=== PATIENT | male | born 1955 | race African-American/Black ===

== ENCOUNTER 2018-09-22 15:01 | Emergency (ER) | payer MEDICARE, SELFPAY ==
[2018-09-22 15:01] VITALS: BP 154/113; PULSE 107; RESP 18; TEMP 36.1; O2SAT 93; BMI 38.2
--- NOTE | 2018-09-22 15:24 | ED.RN ---
PT STATES THAT THESE GUYS ARE LISTENING TO EVERYTHING I AM SAYING RIGHT NOW. PT STATES THAT THEY ARE GOING TO COME GET ME. PT STATES THAT THERE ARE PEOPLE IN THE SMALL AND TV. I DONT WANT ANYONE IN THIS ROOM.
--- NOTE | 2018-09-22 15:33 | ED.RN ---
PT STATES THAT THEY PUT A TRACKER IN ME, I'M NOT SURE WHERE IT IS, I THINK IT IS IN MY NECK. YOU CAN HEAR IT GO 'BEEP BEEP BEEP' WHEN THEY ARE ON THE TV WATCHING ME. 'BEEP BEEP BEEP'.
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
[2018-09-22] MEDS: LORazepam 1 MG Tablet 2 MG PO (15:58)
--- NOTE | 2018-09-22 16:00 | ED.RN ---
PT CONTINUES TO HAVE CONCERNS REGARDING ABOUT PEOPLE COMING TO GET HIM. THIS RN TRYING TO REASSURE PT THAT WE ARE HERE TO HELP HIM.
[2018-09-22 16:01] VITALS: RESP 16
[2018-09-22 16:56] LABS: Amphetamine Urine VISTA POSITIVE (<1000 ng/mL); Barbiturate Urine VISTA NEGATIVE (< 200 ng/mL); Benzodiazepine Urine VISTA NEGATIVE (< 200 ng/mL); Cocaine Urine VISTA POSITIVE (< 300 ng/mL); Ecstacy Urine VISTA POSITIVE (< 500 ng/mL); Methadone Urine VISTA NEGATIVE (< 300 ng/mL); PCP Urine VISTA NEGATIVE (< 25 ng/mL); THC Urine VISTA POSITIVE (< 50 ng/mL); Vista UDS pH Range 6
--- NOTE | 2018-09-22 17:11 | ED.RN ---
CALLED THE [facility]
[2018-09-22 17:18] LABS: Absolute Lymphocyte Count 1.88 X10^3/ul (0.83-4.51); Absolute Neutrophil Count 3.9 X10^3/uL (2.0-7.7); Basophil# 0.01 X10^3/uL; Basophil% 0.2 % (0-1); Eosinophil# 0.06 X10^3/uL; Hematocrit 49.2 % (40-54); Hemoglobin 16.6 g/dl (13.0-16.5); Lymphocyte # 1.88 X10^3/ul (4.0); Lymphocyte % 30.5 % (19-41); Mean Corp Hgb Conc 33.7 g/gl (32-36); Mean Corpuscular Hgb 29.8 pg (27.0-32.0); Mean Corpuscular Volume 88.3 fL (80-94); Mean Platelet Vol. 9.8 fl (6.2-12.0); Monocyte# 0.36 X10^3/uL; Monocyte% 5.8 % (0-10); Neutrophil # 3.85 X10^3/uL (2.7-7.7); Neutrophil % 62.5 % (47-70); Platelet Count 183 K/mm3 (150-450); Red Blood Count 5.57 M/mm3 (4.6-6.2); White Blood Count 6.2 K/mm3 (4.4-11.0)
[2018-09-22 17:19] LABS: POSITIVE COUNT NO; POSITIVE DIFFERENTIAL NO; POSITIVE MORPHOLOGY NO
[2018-09-22 17:35] LABS: Anion Gap 11 (5-15); BUN 15 mg/dL (7-18); BUN/Creat Ratio 9.9 RATIO (10-20); Calcium,Total 8.9 mg/dL (8.5-10.1); Chloride 109 mmol/L (98-107); Creatinine, Serum 1.51 mg/dL (0.70-1.30); EST Glomerular Filtration Rate 50 mL/min (>60); Est Glom Filt Rate - Afr Amer 60 mL/min (>60); Estimated Creatinine Clearance 44.12 ml/min; Glucose 87 mg/dL (74-106); Potassium 3.2 mmol/L (3.5-5.1); Sodium Level 148 mmol/L (136-145)
[2018-09-22 17:52] LABS: Alcohol, Blood (Medical)-Serum < 3.0 mg/dL
[2018-09-22 17:58] VITALS: RESP 18
--- NOTE | 2018-09-22 17:59 | ED.RN ---
ENIO FROM [facility] IS HERE.
--- NOTE | 2018-09-22 18:40 | DCINST.ED_ITS ---
ED Disposition - Plan for ED Patient: Chief Complaint: Mental Health Instructions: ED Personality Disorder, ED Drug Abuse General Referrals: Elaine Smith MD [Primary Care Provider] - Additional Instructions: Please consider going to detox through your doctor's office or the [facility] detox center stop using drugs as it can lead to or complications
[2018-09-22] MEDS: 0.9% Normal Saline 1,000 ML 999 ML IV (18:43)
--- NOTE | 2018-09-22 18:46 | ED.RN ---
SPOKE WITH PT SISTER. THE SISTER STATED THAT HE DOES NOT HAVE BEHAVIORAL HEALTH PROBLEMS, THAT HE HAS DRUG ABUSE ISSUES AND SO DOES HIS GIRLFRIEND. STATED THAT THE PT MAY GO HOME AROUND [facility]. SISTER IS ATTEMPTING TO MAKE ARRANGEMENTS FOR THE PT TO BE PICKED UP.
[2018-09-22 19:27] VITALS: RESP 16
[2018-09-22 20:25] VITALS: RESP 16
[2018-09-22 20:54] VITALS: BP 139/97; PULSE 95; RESP 18; O2SAT 96
== END 2018-09-22 21:03 | disposition home or self-care (01) ==
LOC: ED 15:56
PROVIDERS: Emergency Provider Emergency Medicine; Family Provider Internal Medicine; PCP Internal Medicine
DX: R44.1 Visual hallucinations (principal); F19.10 Other psychoactive substance abuse, uncomplicated; I10 Essential (primary) hypertension; F14.90 Cocaine use, unspecified, uncomplicated; F15.90 Other stimulant use, unspecified, uncomplicated; Z79.899 Other long term (current) drug therapy
CPT/HCPCS: 36415; 80048; 80307; 80320; 85025; 99284; J7030; A4216; G0480

== ENCOUNTER 2018-10-16 12:46 | Emergency (ER) | payer MEDICARE, SELFPAY ==
[2018-10-16 12:48] VITALS: BP 139/86; PULSE 110; RESP 18; TEMP 36.8; O2SAT 100; BMI 89.8
--- NOTE | 2018-10-16 13:29 | RAD_ITS ---
STUDY: X-RAY - LEFT TIBIA AND FIBULA REASON FOR EXAM: Male, 62 years old. Pain. TECHNIQUE: 2 view(s) of the tibia and fibula were obtained. COMPARISON: None. FINDINGS: Normal visualized tibia. Normal visualized fibula. Soft tissue swelling. RAD/Tibia & Fibula 2 Views IMPRESSION: Soft tissue swelling. Electronically Signed: Daryl Albarado MD at 14:55 EST Tel [phone], Service support ,
[2018-10-16 13:35] LABS: Absolute Lymphocyte Count 2.07 X10^3/ul (0.83-4.51); Absolute Neutrophil Count 4.5 X10^3/uL (2.0-7.7); Eosinophil# 0.07 X10^3/uL; Hematocrit 47.5 % (40-54); Hemoglobin 15.9 g/dl (13.0-16.5); Lymphocyte # 2.07 X10^3/ul (4.0); Lymphocyte % 29.9 % (19-41); Mean Corp Hgb Conc 33.5 g/gl (32-36); Mean Corpuscular Hgb 29.1 pg (27.0-32.0); Mean Platelet Vol. 9.4 fl (6.2-12.0); Monocyte# 0.25 X10^3/uL; Monocyte% 3.6 % (0-10); Neutrophil # 4.52 X10^3/uL (2.7-7.7); Neutrophil % 65.4 % (47-70); Platelet Count 188 K/mm3 (150-450); RBC Distribution Width CV 15.2 % (11.6-14.6); RBC Distribution Width SD 48.5 fl (35.1-43.9); Red Blood Count 5.46 M/mm3 (4.6-6.2); White Blood Count 6.9 K/mm3 (4.4-11.0)
[2018-10-16 13:36] LABS: POSITIVE COUNT NO; POSITIVE DIFFERENTIAL NO; POSITIVE MORPHOLOGY NO
--- NOTE | 2018-10-16 13:47 | CM.ED ---
SOCIAL WORK NOTE DISCUSSED PT'S CASE WITH DR. LORA. PER DR. LORA, PT NEEDS EVALUATION BY [facility] D/T EXTREME PARANOIA. POSSIBLE PLACEMENT FOR INPT PSYCH? GARCIA DAVIS, OIL LABORATORY ANALYST, MANAGER NICU.
[2018-10-16 13:54] LABS: ALB/GLOB Ratio 0.9 RATIO (0.9-2.4); AST(SGOT) 20 U/L (15-37); Alanine Aminotransfer ALT/SGPT 26 U/L (16-61); Albumin, Serum 3.6 g/dL (3.2-5.0); Alkaline Phosphatase 100 U/L (45-117); Anion Gap 10 (5-15); BUN 10 mg/dL (7-18); BUN/Creat Ratio 8.3 RATIO (10-20); Calcium,Total 8.8 mg/dL (8.5-10.1); Chloride 105 mmol/L (98-107); Creatinine, Serum 1.21 mg/dL (0.70-1.30); EST Glomerular Filtration Rate 64 mL/min (>60); Est Glom Filt Rate - Afr Amer 78 mL/min (>60); Estimated Creatinine Clearance 50.94 ml/min; Glucose 140 mg/dL (74-106); Potassium 3.2 mmol/L (3.5-5.1); Protein, Total 7.6 g/dL (6.4-8.2); Sodium Level 142 mmol/L (136-145)
[2018-10-16] MEDS: Ziprasidone IM 20 MG/ML VIAL 10 MG IM ×2 (13:56→14:19)
[2018-10-16 14:21] LABS: Alcohol, Blood (Medical)-Serum < 3.0 mg/dL
--- NOTE | 2018-10-16 14:30 | RAD_ITS ---
STUDY: X-RAY - LEFT ANKLE REASON FOR EXAM: Male, 62 years old. Pain. No known injury. TECHNIQUE: view(s) of the ankle. COMPARISON: None. FINDINGS: Normal visualized distal tibia and fibula. Normal medial and lateral malleoli. Normal tibiotalar articulation and ankle mortise. Normal visualized talus and calcaneus. The visualized subtalar, talonavicular, calcaneocuboid and tarsal articulations are normal. Soft tissue swelling. RAD/Ankle min 3 Views IMPRESSION: Soft tissue swelling. Electronically Signed: Daryl Albarado MD at 14:55 EST Tel [phone], Service support ,
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
--- NOTE | 2018-10-16 15:52 | NURSING ---
CALLED [facility], TALKED TO [facility]. SHE IS ON HER WAY HERE
[2018-10-16 16:38] VITALS: BP 103/66; PULSE 67; RESP 18; O2SAT 96
--- NOTE | 2018-10-16 16:44 | NURSING ---
[facility], [facility], IN ER
[2018-10-16 18:00] VITALS: BP 107/66; PULSE 69; RESP 18; O2SAT 97
[2018-10-16 18:21] LABS: Amphetamine Urine VISTA POSITIVE (<1000 ng/mL); Barbiturate Urine VISTA NEGATIVE (< 200 ng/mL); Benzodiazepine Urine VISTA NEGATIVE (< 200 ng/mL); Cocaine Urine VISTA NEGATIVE (< 300 ng/mL); Ecstacy Urine VISTA NEGATIVE (< 500 ng/mL); Methadone Urine VISTA NEGATIVE (< 300 ng/mL); PCP Urine VISTA NEGATIVE (< 25 ng/mL); THC Urine VISTA NEGATIVE (< 50 ng/mL); Vista UDS pH Range 7
[2018-10-16 20:22] VITALS: BP 148/94; PULSE 100; RESP 15; O2SAT 97
--- NOTE | 2018-10-16 20:48 | ED.DEP ---
ED Disposition - Plan for ED Patient: Disposition: Home or Assisted Living Chief Complaint: Mental Health Instructions: ED Paranoid Schizophrenia Referrals: Elaine Smith MD [Primary Care Provider] - Additional Instructions: Follow-up on Sunday as scheduled.
--- NOTE | 2018-10-16 20:55 | ED.RN ---
PT AND SPOUSE GIVEN WRITTEN AND VERBAL DISCHARGE INSTRUCTIONS. PT AND GIRLFRIEND VERBALIZE UNDERSTANDING AND DENIES ANY FURTHER QUESTIONS. PT AMBULATORY OUT OF DEPT. PT TO FOLLOW UP WITH [facility] VIA APPT ON SUNDAY.
== END 2018-10-16 21:00 | disposition home or self-care (01) ==
PROVIDERS: Emergency Provider Emergency Medicine; Family Provider Internal Medicine; PCP Internal Medicine
DX: F20.0 Paranoid schizophrenia (principal); M79.662 Pain in left lower leg; M25.572 Pain in left ankle and joints of left foot; W17.89XA Other fall from one level to another, initial encounter; Y93.9 Activity, unspecified; Y92.9 Unspecified place or not applicable; F12.90 Cannabis use, unspecified, uncomplicated; F14.90 Cocaine use, unspecified, uncomplicated; F15.90 Other stimulant use, unspecified, uncomplicated; I10 Essential (primary) hypertension; Z79.899 Other long term (current) drug therapy; Z72.0 Tobacco use
CPT/HCPCS: 36415; 73590; 73610; 80053; 80307; 80320; 85025; 96372; 99285; G0480; J3486

== ENCOUNTER 2018-11-22 07:07 | Emergency (ER) | payer MEDICARE, MEDICAID, SELFPAY ==
[2018-11-22 07:09] VITALS: BP 145/123; PULSE 114; RESP 33; TEMP 35.9; BMI 40.7
--- NOTE | 2018-11-22 07:12 | EKG12_ITS ---
Test Reason : GEN ILLNESS Blood Pressure : / mmHG Vent. Rate : 118 BPM Atrial Rate : 118 BPM P-R Int : 142 ms QRS Dur : 076 ms QT Int : 350 ms P-R-T Axes : 075 045 076 degrees QTc Int : 490 ms Sinus tachycardia Otherwise normal ECG Confirmed by HANS VEGA, SOBIA ([id number]), assistant production editor BREE NUÑEZ ([id number]) on 11/25/2018 10:15:25 AM Referred By: ARVIND Confirmed By:SOBIA MAXWELL MD
[2018-11-22 07:14] VITALS: BP 115/83; PULSE 114; RESP 25; O2SAT 94
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
--- NOTE | 2018-11-22 07:38 | CT_ITS ---
STUDY: CT BRAIN WITHOUT CONTRAST REASON FOR EXAM: Male, 63 years old. Abrasions due to a fall. RADIATION DOSAGE (If Supplied By Facility): CTDIvol = ( 44.99 ) mGy, DLP = ( 796.11 ) mGycm TECHNIQUE: Transaxial CT imaging of the brain was performed without administration of intravenous contrast material. Individualized dose optimization techniques were used for this CT. COMPARISON: Comparison is made with prior study dated April 01, 2016. FINDINGS: Normal soft tissue structures. Normal calvarium. Normal size ventricles and extra-axial spaces for the patient's age. Normal white matter tracts of the cerebral hemispheres. Normal basal ganglia and thalami. Normal brainstem. Normal cerebellum. There is no intracranial hemorrhage. There are no findings of an acute ischemic infarction. There is opacification of the left maxillary sinus. Prior surgery of the left maxillary antrum. CT/Brain/Head without Contrast IMPRESSION: Opacification of the left maxillary sinus. No acute abnormality is seen. Electronically Signed: Daryl Albarado MD at 8:33 EST , Service support ,
[2018-11-22] MEDS: 0.9% Normal Saline 1,000 ML 150 ML IV (07:40)
[2018-11-22 07:49] LABS: Absolute Lymphocyte Count 1.79 X10^3/ul (0.83-4.51); Absolute Neutrophil Count 5.8 X10^3/uL (2.0-7.7); Basophil# 0.01 X10^3/uL; Basophil% 0.1 % (0-1); Eosinophil# 0.03 X10^3/uL; Eosinophils% 0.4 % (0-5); Hematocrit 50.4 % (40-54); Hemoglobin 17.3 g/dl (13.0-16.5); Lymphocyte # 1.79 X10^3/ul (4.0); Lymphocyte % 21.8 % (19-41); Mean Corp Hgb Conc 34.3 g/gl (32-36); Mean Corpuscular Hgb 29.8 pg (27.0-32.0); Mean Corpuscular Volume 86.9 fL (80-94); Mean Platelet Vol. 10.2 fl (6.2-12.0); Monocyte# 0.52 X10^3/uL; Monocyte% 6.3 % (0-10); Neutrophil # 5.84 X10^3/uL (2.7-7.7); Neutrophil % 71.2 % (47-70); Platelet Count 212 K/mm3 (150-450); RBC Distribution Width CV 15.4 % (11.6-14.6); RBC Distribution Width SD 49.3 fl (35.1-43.9); White Blood Count 8.2 K/mm3 (4.4-11.0)
[2018-11-22 07:54] LABS: POSITIVE COUNT NO; POSITIVE DIFFERENTIAL NO; POSITIVE MORPHOLOGY NO
[2018-11-22 08:05] LABS: AST(SGOT) 55 U/L (15-37); Alanine Aminotransfer ALT/SGPT 70 U/L (16-61); Alkaline Phosphatase 114 U/L (45-117); Anion Gap 11 (5-15); BUN 20 mg/dL (7-18); BUN/Creat Ratio 10.1 RATIO (10-20); Bilirubin, Direct 0.22 mg/dL (0.00-0.30); Calcium,Total 9.1 mg/dL (8.5-10.1); Chloride 110 mmol/L (98-107); Creatinine, Serum 1.98 mg/dL (0.70-1.30); EST Glomerular Filtration Rate 37 mL/min (>60); Est Glom Filt Rate - Afr Amer 44 mL/min (>60); Globulin 4.6 g/dL (2.2-4.2); Glucose 85 mg/dL (74-106); Potassium 3.4 mmol/L (3.5-5.1); Protein, Total 8.6 g/dL (6.4-8.2); Sodium Level 146 mmol/L (136-145)
[2018-11-22 08:17] LABS: Alcohol, Blood (Medical)-Serum < 3.0 mg/dL
[2018-11-22 08:58] LABS: Color, Urine Yellow (Yellow); Glucose, Dipstick Normal (Normal); Ketone-Dipstick 15 mg/dl (Negative); Leukocyte Esterase-Dipstick 500 /ul (Negative); Nitrite-Dipstick Negative (Negative); Occult Blood-Urine 150 /ul (Negative); Protein-Dipstick 30 mg/dl (Negative); Specific Gravity, Urine 1.025 (1.002-1.030); Urine Bilirubin Dipstick Negative (Negative); Urine Clarity Sl. Cloudy (Clear); Urine Urobilinogen Normal (Normal)
[2018-11-22 09:01] LABS: Bacteria 1+ /hpf (None Seen); Mucous, Urine 1+ /hpf (<or=2+); Red Blood Cells-Urine 10-25 SEEN /hpf (0-5); Squamous Epithelial Cells - UA 0-5 SEEN /hpf (0-5); White Blood Cells 25-50 SEEN /hpf (0-5)
[2018-11-22 09:10] VITALS: BP 159/111; PULSE 120; RESP 18; O2SAT 99
[2018-11-22 09:13] LABS: Amphetamine Urine VISTA POSITIVE (<1000 ng/mL); Barbiturate Urine VISTA NEGATIVE (< 200 ng/mL); Benzodiazepine Urine VISTA NEGATIVE (< 200 ng/mL); Cocaine Urine VISTA NEGATIVE (< 300 ng/mL); Ecstacy Urine VISTA POSITIVE (< 500 ng/mL); Methadone Urine VISTA NEGATIVE (< 300 ng/mL); PCP Urine VISTA NEGATIVE (< 25 ng/mL); THC Urine VISTA POSITIVE (< 50 ng/mL); Vista UDS pH Range 5
[2018-11-22] MEDS: Ciprofloxacin 500 MG Tablet PO (09:32)
--- NOTE | 2018-11-22 11:20 | NURSING ---
CALLED [facility], TALKED TO NUNO. SHE WILL PASS ON
[2018-11-22 11:25] VITALS: BP 162/102; PULSE 93; RESP 18; O2SAT 99
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
--- NOTE | 2018-11-22 12:02 | NURSING ---
ELAINE, CRISIS, CALLED BACK. [facility] WILL BE COMING
[2018-11-22 13:21] VITALS: BP 114/97; PULSE 114; RESP 24; O2SAT 100
[2018-11-22 13:22] VITALS: BP 114/79; PULSE 114; RESP 18; O2SAT 98
--- NOTE | 2018-11-22 13:22 | ED.RN ---
pt states im sick of waiting. im leaving. d/c'd pts iv, pt ambulates out of dept without difficulty
--- NOTE | 2018-11-22 15:00 | CM.ED ---
SOCIAL WORK NOTE PATIENT REQUESTING D/C PRIOR TO CRISIS EVAL.
== END 2018-11-22 13:23 | disposition home or self-care (01) ==
PROVIDERS: Emergency Provider Emergency Medicine; Family Provider Internal Medicine; PCP Internal Medicine
DX: T68.XXXA Hypothermia, initial encounter (principal); F20.9 Schizophrenia, unspecified; E87.6 Hypokalemia; N30.90 Cystitis, unspecified without hematuria; S00.01XA Abrasion of scalp, initial encounter; S00.81XA Abrasion of other part of head, initial encounter; S30.811A Abrasion of abdominal wall, initial encounter; W19.XXXA Unspecified fall, initial encounter; Y93.9 Activity, unspecified; Y92.9 Unspecified place or not applicable; K21.9 Gastro-esophageal reflux disease without esophagitis; I10 Essential (primary) hypertension; F15.90 Other stimulant use, unspecified, uncomplicated; F12.90 Cannabis use, unspecified, uncomplicated; F10.29 Alcohol dependence with unspecified alcohol-induced disorder; Z79.899 Other long term (current) drug therapy; Z72.0 Tobacco use
CPT/HCPCS: 70450; 80048; 80076; 80307; 80320; 81001; 85025; 87086; 87088; 93005; 96360; 96361; 99285; J7040; G0480

== ENCOUNTER 2020-01-23 15:03 | Emergency (ER) | payer MEDICARE, SELFPAY ==
[2020-01-23 15:04] VITALS: BP 165/103; BP 185/104; PULSE 101; PULSE 83; RESP 16; RESP 20; TEMP 36.3; O2SAT 95; O2SAT 98; BMI 36.5
--- NOTE | 2020-01-23 15:30 | ED.VIS.GEN ---
History of Present Illness Chief Complaint: Foreign Body Informant: Patient Onset: Weeks Current Severity: Mild Maximum Severity: Mild Narrative: Patient presents 1 week after stepping on a piece of glass. He believes are still a piece of glass stuck in his left foot. He has had a swollen sore area. He denies any drainage from the area. Patient states he was recently diagnosed with diabetes but has not yet on medication. - Past Medical History (1) GERD (gastroesophageal reflux disease) Status: Chronic (2) Diabetes Status: Chronic (3) Hypertension Status: Chronic Past Medical History - Allergies and Home Meds Allergies/Adverse Reactions: Allergies garlic Adverse Reaction (Verified 01/23/20 15:05) Vomiting parsley Adverse Reaction (Verified 01/23/20 15:05) Vomiting Primary Care Physician: Elaine Smith MD [Primary Care Provider] - Prior records reviewed: Yes Surgical History: cataract, - - Abdominal surgery due to stomach ulcer in 1992 Smoking Status: Current every day smoker - Family History Maternal Family History: Reports: Hypertension Review of Systems General: Denies: Chills, Fever Eyes: Denies: Visual changes - bilaterally ENT: Denies: Bilateral ear pain Cardiovascular: Denies: Chest pain Respiratory: Denies: Dyspnea, Cough Gastrointestinal: Denies: Abdominal pain Musculoskeletal: Reports: Swelling, Extremity Pain Skin: Reports: Wounds Neurological: Denies: Headache Allergy: Denies: Uticaria Physical Exam Vital Signs/Narrative: Vital Signs Temp Pulse Resp BP Pulse Ox 01/23/20 15:04 97.3 F L 101 H 16 165/103 H 98 Inital Vital Signs reviewed: Yes General: Well nourished, Well developed Head: Normocephalic ENT: Moist mucous membranes Neck: Supple Cardiovascular: Regular rate, Regular rhythm Respiratory: No distress, CTA bilaterally Abdomen: Soft, Nontender Extremities: - - Patient does have edema noted to both lower extremities. On the plantar surface of the left foot there is a small open area about 6 mm in length along the medial arch near the heel. There is slight surrounding edema. There is no erythema or drainage. Area is mildly tender to touch. Neurological: Alert, Oriented x3 Psychological: Normal affect Diagnostic/Tx/Re-eval 01/23/20 15:52 Foot min 3 Views [RAD] Stat IMPRESSION: 1. No osseous abnormality. 2. Metallic foreign body in the medial plantar soft tissues. 01/23/20 16:38 Foot 2 Views [RAD] Stat Repeat x-ray per my review shows resolution of foreign body. - Medical Decision Making Left foot was cleansed. 4 cc 1% lidocaine were infused locally. The laceration above the foot was extended with a #11 blade. Small piece of glass was able to be removed. Wound was explored and irrigated. Repeat x-rays revealed no further foreign body. Dressing is applied. He was referred to podiatry for follow-up as needed. ED Disposition - Plan for ED Patient: Disposition: Home or Assisted Living Diagnosis: H/O retained foreign body fully removed Instructions: ED Foreign Body Soft Tissue Removed Referrals: William hCoi DPM [STAFF PHYSICIAN] - As Needed
--- NOTE | 2020-01-23 15:52 | RAD_ITS ---
STUDY: X-RAY - LEFT FOOT CLINICAL: Male, 64 years old. FOREIGN BODY IN PLANTAR FOOT TECHNIQUE: 3 view(s) of the foot. COMPARISON: None. FINDINGS: Normal talus, calcaneus, and tarsal bones. Normal visualized subtalar, talonavicular, calcaneocuboid, tarsal and tarsometatarsal articulations. Normal metatarsi. Normal metatarsophalangeal joint of the great toe. Normal tibial and fibular sesamoid bones. Normal interphalangeal joint of the great toe. Normal phalanges of the great toe. Normal second through fifth metatarsophalangeal joints. Normal interphalangeal joints and phalanges of the lesser toes. There is a 7 x 2 mm metallic foreign body in the medial plantar soft tissues, 5 mm from the plantar skin surface. RAD/Foot min 3 Views IMPRESSION: 1. No osseous abnormality. 2. Metallic foreign body in the medial plantar soft tissues. Electronically Signed: Lisha Knott MD at 16:09 EDT Tel , Service support ,
--- NOTE | 2020-01-23 16:38 | RAD_ITS ---
STUDY: X-RAY - LEFT FOOT CLINICAL: Male, 64 years old. FOREIGN BODY REMOVAL -- SEE PREVIOUS IMAGES TECHNIQUE: 3 view(s) of the foot. COMPARISON: 3:53 PM. FINDINGS: Normal talus, calcaneus, and tarsal bones. Normal visualized subtalar, talonavicular, calcaneocuboid, tarsal and tarsometatarsal articulations. Normal metatarsi. Normal metatarsophalangeal joint of the great toe. Normal tibial and fibular sesamoid bones. Normal interphalangeal joint of the great toe. Normal phalanges of the great toe. Normal second through fifth metatarsophalangeal joints. Normal interphalangeal joints and phalanges of the lesser toes. Moderate dorsal soft tissue swelling. No evidence of radiopaque foreign body. Specifically, metallic foreign body on the previous study has been removed. RAD/Foot 2 Views IMPRESSION: Dorsal soft tissue swelling, otherwise negative x-ray examination of the foot. No evidence of opaque foreign body status post removal. Electronically Signed: Lisha Knott MD at 17:00 EDT Tel , Service support ,
[2020-01-23 17:00] VITALS: BP 180/104; PULSE 83; RESP 20; O2SAT 97
== END 2020-01-23 17:09 | disposition home or self-care (01) ==
PROVIDERS: Emergency Provider Emergency Medicine; PCP Internal Medicine
DX: S91.342A Puncture wound with foreign body, left foot, initial encounter (principal); W25.XXXA Contact with sharp glass, initial encounter; Y93.9 Activity, unspecified; Y92.9 Unspecified place or not applicable; I10 Essential (primary) hypertension; K21.9 Gastro-esophageal reflux disease without esophagitis; E11.9 Type 2 diabetes mellitus without complications; Z79.899 Other long term (current) drug therapy; F17.200 Nicotine dependence, unspecified, uncomplicated
CPT/HCPCS: 28190; 10120; 73620; 73630; 99284